=== PATIENT | female | born 1995 | race African-American/Black ===

== ENCOUNTER 2018-09-23 20:10 | Emergency (ER) | payer SELFPAY ==
[~2018-09-23] VITALS: Ht 170.2 cm; Wt 64.0 kg
[2018-09-23 20:28] VITALS: BP 141/89
== END 2018-09-23 23:50 | disposition left against medical advice (07) ==
LOC: ER 20:10
DX: Z53.21 Procedure and treatment not carried out due to patient leaving prior to being seen by health care provider (principal)